=== PATIENT | female | born 1955 | race Caucasian/White ===

== ENCOUNTER → 2016-12-24 | Outpatient (CLI) | payer OTHER ==
[2014-09-04 11:53] VITALS: BP 107/73
--- NOTE | 2016-12-24 12:24 | KCIC ---
Single view supine abdomen HISTORY: Kidney stone. COMPARISON: None FINDINGS: Right side ureteric stent is identified. A cluster of calcifications is identified below the proximal loop, likely within the lower pole of the right kidney, and measuring about 14 mm in aggregate diameter. Multiple calcifications are seen along the distal stent could be within the distal ureter. Tiny density seen adjacent to the proximal stent, at the level of the transverse process of L4, could represent an additional tiny intraureteric calculus. Bowel gas pattern is nonspecific but not overtly obstructive. Multiple left pelvic calcifications are likely phleboliths. IMPRESSION: 1. Right ureteric stent is identified. 2. Cluster of calcifications along the distal stent may be within the distal right ureter, potential tiny calculus at the more proximal right ureter. 3. Right lower pole renal calculi. Electronically signed by: Iftikhar Packer MD (12/24/2016 12:21 PM) [id number]
== END | disposition home or self-care (01) ==
LOC: KCIC 10:50
PROVIDERS: ATTEND Urology
DX: N20.2 Calculus of kidney with calculus of ureter (principal)
CPT/HCPCS: 74000

== ENCOUNTER → 2017-02-24 | Outpatient (CLI) | payer OTHER ==
[2014-09-04 11:53] VITALS: BP 107/73
--- NOTE | 2017-02-24 12:48 | KCIC ---
EXAM: Abdomen, single view. HISTORY: Lithotripsy. COMPARISON: 12/22/2016 and 09/04/2014 FINDINGS: A frontal view of the abdomen is obtained. There is a right nephroureteral stent overlying expected position. There is a stable stone or cluster of stones within the lower pole the right kidney measuring 12 mm. There is a nonobstructive bowel gas pattern. There are cholecystectomy clips. There are degenerative changes involving the spine. There are few pelvic phleboliths. The previously demonstrated calcifications along the distal aspect of the right nephroureteral stent on a longer seen. There is a single calcification within this location, the appearance of which favors a phlebolith. IMPRESSION: 1. Right nephro ureteral stent in expected position. 2. Stable stone or cluster of stones within the lower pole the right kidney. Evaluation for smaller renal calculi is limited due to overlying bowel. 3. Interval retrieval or passage of clustered stones along the distal aspect of the right nephro ureteral stent. There is a single residual calcification within this location, the appearance of which favors a phlebolith. Electronically signed by: Michelle Castillo MD (02/24/2017 12:44 PM) [id number]
== END | disposition home or self-care (01) ==
LOC: KCIC 11:14
PROVIDERS: ATTEND Urology
DX: N20.0 Calculus of kidney (principal)
CPT/HCPCS: 74000

== ENCOUNTER → 2017-08-04 | Outpatient (CLI) | payer OTHER | END | disposition home or self-care (01) | LOC: KCIC 15:53 | DX: N20.0 Calculus of kidney (principal) | CPT/HCPCS: 74018 ==

== ENCOUNTER → 2017-08-18 | Outpatient (CLI) | payer OTHER | END | disposition home or self-care (01) | LOC: KCIC 15:41 | DX: N20.0 Calculus of kidney (principal); I87.8 Other specified disorders of veins; I10 Essential (primary) hypertension | CPT/HCPCS: 74018 ==

== ENCOUNTER → 2018-10-26 | Outpatient (CLI) | payer OTHER ==
[2014-09-04 11:53] VITALS: BP 107/73
--- NOTE | 2018-10-26 13:46 | KCIC ---
AP view of the abdomen Clinical indications: Renal calculi. COMPARISON: August 18, 2017. FINDINGS: Again seen is a group of radiopaque stones within the lower pole of the right kidney which are partially obscured by overlying fecal material. Otherwise no significant change. Vascular calcifications are again seen within the anatomic pelvis. There is mild fecal retention throughout the colon and rectosigmoid region. No obstructive bowel pattern is seen. Osseous structures are intact. Cholecystectomy clips are present. IMPRESSION: Cluster of small radiopaque stones are seen within the lower pole of the right kidney which have not changed significantly. Electronically signed by: Codey Messina MD (10/26/2018 1:43 PM) [facility]
== END | disposition home or self-care (01) ==
LOC: KCIC 10:44
PROVIDERS: ATTEND Urology
DX: N20.0 Calculus of kidney (principal); K59.00 Constipation, unspecified; Z90.49 Acquired absence of other specified parts of digestive tract
CPT/HCPCS: 74018